=== PATIENT | female | born 1995 | race Caucasian/White ===

== ENCOUNTER 2018-06-30 22:37 | Emergency (ER) | payer BC, MEDICAID ==
[2018-06-30 22:47] VITALS: BP 116/65
--- NOTE | 2018-06-30 23:22 | EDM.PDOC ---
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 She states she landed more or less on her right hip right lateral abdominal wall and right lower ribs. It did not the wind out of her. Her concern is injury to her second trimester . He claims that she is about 15-16 weeks . Previous ultrasound dated her due date to be November 26, 2018. She's had no spotting or bleeding per vagina since time of injury. Lower abdominal pain or cramping. She states she can take a deep breath without pain in her ribs at this time. She states she does feel stiff and sore and bruised. Onset: Today Onset Date: 06/30/18 Onset Time: 21:45 Duration: Minutes: Location: Reports: Chest (Right lower ribs), Back (Right lower back and flank area), Lower Extremity, Right (Right hip and thigh.) Quality: Reports: Ache Severity: Mild Improves with: Reports: Rest Worsens with: Reports: Movement Context: Reports: Trauma (Tripped and fell while walking down stairs landing hard on her right side injuring her right hip right lower ribs and right lateral abdominal wall and flank.). 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 Denies: Fever, Chills, Malaise HEENT: Reports: No Symptoms (During the ) Respiratory: Reports: Other. Denies: Shortness of Breath, Wheezing, Pleuritic Chest Pain Cardiovascular: Reports: No Symptoms (Some pain right lower ribs on examination) Endocrine: Reports: Fatigue GI/Abdominal: Reports: No Symptoms. Denies: Abdominal Pain : Reports: Frequency, Other (Is 15-1/2 weeks by dates.) Musculoskeletal: Reports: Other (Recent fall with contusion to her right hip thigh and flank.) Skin: Reports: No Symptoms Neurological: Reports: No Symptoms Psychiatric: Reports: No Symptoms Hematologic/Lymphatic: Reports: No Symptoms Immunologic: Reports: No Symptoms ED EXAM - Physical Exam Exam: See Below Exam Limited By: No Limitations General Appearance: Alert, WD/WN, Anxious, Moderate Distress Respiratory/Chest: No Respiratory Distress, Lungs Clear, Normal Breath Sounds, Chest Non-Tender, Other (From compression of her ribs gave her very little discomfort with no signs of rib fracture right lower) Cardiovascular: Normal Peripheral Pulses, Regular Rate, Rhythm, No Edema, No Gallop, No Murmur GI/Abdominal Exam: Normal Bowel Sounds, Soft, Non-Tender, No Organomegaly, No Abnormal Bruit, No Mass, Pelvis Stable, Other (Uterine fundus palpable 3 cm above the pubic symphysis.) Heart Tones: Present (On ultrasound at bedside.) Heart Tones per Min: 158 Back Exam: Normal Inspection, Full Range of Motion. No: CVA Tenderness (L), CVA Tenderness (R) Extremities: Normal Inspection, Normal Range of Motion, Non-Tender, No Pedal Edema, Other (Tender over the greater trochanteric process right hip but no signs of) Neurological: Alert, Oriented ( bony injury), CN II-XII Intact, Normal Cognition , Normal Gait Psychiatric: Anxious Skin Exam: Warm, Dry, Intact, Normal Color, No Rash Course - Vital Signs Last Recorded V/S: Last Vital Signs Temp 36.6 C 06/30/18 22:45 Pulse 107 H 06/30/18 22:45 Resp 18 06/30/18 22:45 BP 116/65 06/30/18 22:45 Pulse Ox 97 06/30/18 22:45 - Radiology Interpretation Free Text/Narrative:: 23-year-old female presents to the ED after falling down the flight of stairs. She landed hard on her right hip right lateral abdominal wall right flank area and right lower ribs. She states it did not the wind out of her. She states these areas don't hurt too bad.Major concern is possible injury to fetus. She is clinically 15-1/2 weeks . She denies any spotting or bleeding per vagina. She fell within the last hour. Examination shows no signs of rib or bony fracture. She has some contusion to her greater trochanteric process of her right hip and upper thigh and lateral abdominal wall. Benign abdominal examination. Bedside ultrasound shows a active fetus with a good heart beat with heart tones of 158/m there is no evidence of any placental hemorrhage or subchorionic bleed. Patient reassured. Conservative treatment with Tylenol if needed ice to sore areas. 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 Departure - Departure Time of Disposition: 23:31 Disposition: Home, Self-Care 01 Condition: Fair Clinical Impression: Fall (on) (from) other stairs and steps, initial encounter, Normal in second trimester Contusion of rib on right side Qualifiers: Encounter type: initial encounter Qualified Code(s): S20.211A - Contusion of right front wall of thorax, initial encounter - Discharge Information *PRESCRIPTION DRUG MONITORING PROGRAM REVIEWED*: Not Applicable *COPY OF PRESCRIPTION DRUG MONITORING REPORT IN PATIENT SUMMER: Not Applicable Instructions: Contusion, [id number], Second Trimester of Referrals: Jocelin Mejia PA-C [Primary Care Provider] - Forms: ED Department Discharge Additional Instructions: Evaluation the emergency room today in regards to a fall on the stairs tonight. Suffered blunt trauma to the right lower ribs and right lateral abdominal wall and back. No serious injuries appear to occurred to this other other than contusion which means bruised tissues. Concern arose in regards to being in the second trimester with concerns about possible injury to the fetus and/ or the placenta. Ultrasound done in the ED reveals a normal active healthy fetus approximate 15-16 weeks gestation. There are no injuries to the placenta and all looks well. Expect to have some increased stiffness and soreness in the right side tomorrow and the next day. May use Tylenol if needed for pain relief. No Motrin or Aleve in . Follow-up with personal care physician if any further problems arise.
== END 2018-06-30 23:50 | disposition home or self-care (01) ==
LOC: JD.ED 22:37
DX: O9A.212 Injury, poisoning and certain other consequences of external causes complicating pregnancy, second trimester (principal); S20.211A Contusion of right front wall of thorax, initial encounter; O99.512 Diseases of the respiratory system complicating pregnancy, second trimester; J45.909 Unspecified asthma, uncomplicated; O99.332 Smoking (tobacco) complicating pregnancy, second trimester; F17.210 Nicotine dependence, cigarettes, uncomplicated; W10.9XXA Fall (on) (from) unspecified stairs and steps, initial encounter; Z3A.15 15 weeks gestation of pregnancy
CPT/HCPCS: 99283; 99284

== ENCOUNTER 2018-12-12 07:04 | Inpatient (IN) | payer SELFPAY ==
[2018-12-12] MEDS ORDERED: Sodium Chloride 0.9% 10 ML Syringe FLUSH PRN (07:13)
[2018-12-12] MEDS ORDERED: Nalbuphine 20 MG/ML 1 ML Syringe IVPUSH PRN (07:13)
[2018-12-12] MEDS ORDERED: Ondansetron 4 MG/2 ML SDV IVPUSH PRN (07:13)
[2018-12-12] MEDS ORDERED: Oxytocin/Lactated Ringers 10 UNIT/1,000 ML BAG IV SCH ×2 (07:15)
[2018-12-12] MEDS: Lactated Ringers 1,000 ML IV SCH ×3 (08:29→14:15)
--- NOTE | 2018-12-12 11:39 | PCM.PREANE ---
Preanesthetic Assessment - Procedure Proposed Procedure: fozia - Anesthesia/Transfusion/Family Hx Anesthesia History: Prior Anesthesia Without Reaction Family History of Anesthesia Reaction: No Transfusion History: No Prior Transfusion(s) - Review of Systems General: No Symptoms Pulmonary: Wheezing, Cough (asthma) Cardiovascular: No Symptoms Gastrointestinal: No Symptoms Neurological: No Symptoms Other: Reports: Depression, Anxiety - Physical Assessment O2 Sat by Pulse Oximetry: 97 Respiratory Rate: 18 Vital Signs: Last Vital Signs Temp 97.9 F 12/12/18 07:14 Pulse 118 H 12/12/18 07:14 Resp 18 12/12/18 07:14 BP 103/61 12/12/18 07:14 Pulse Ox 97 12/12/18 07:14 Height: 5 ft 2 in Weight: 100.743 kg ASA Class: 2 Mental Status: Alert & Oriented x3 Airway Class: Mallampati = 1 Dentition: Reports: Normal Dentition Thyro-Mental Finger Breadths: 3 Mouth Opening Finger Breadths: 3 ROM/Head Extension: Full Lungs: Clear to Auscultation, Normal Respiratory Effort Cardiovascular: Regular Rate, Regular Rhythm - Lab Values: Laboratory Last Values WBC 15.79 K/mm3 (3.98-10.04) H 12/12/18 08:25 RBC 3.77 M/mm3 (3.98-5.22) L 12/12/18 08:25 Hgb 9.6 gm/L (11.2-15.7) L 12/12/18 08:25 Hct 31.2 % (34.1-44.9) L 12/12/18 08:25 MCV 82.8 fl (79.4-94.8) 12/12/18 08:25 MCH 25.5 pg (25.6-32.2) L 12/12/18 08:25 MCHC 30.8 g/dl (32.2-35.5) L 12/12/18 08:25 RDW Std Deviation 45.4 fL (36.4-46.3) 12/12/18 08:25 Plt Count 388 K/mm3 (182-369) H 12/12/18 08:25 MPV 10.3 fl (9.4-12.3) 12/12/18 08:25 Urine Color Yellow (Yellow) 12/12/18 09:33 Urine Appearance Clear (Clear) 12/12/18 09:33 Urine pH 7.0 (5.0-8.0) 12/12/18 09:33 Ur Specific [place] 1.020 (1.005-1.030) 12/12/18 09:33 Urine Protein Negative (Negative) 12/12/18 09:33 Urine Glucose (UA) Negative (Negative) 12/12/18 09:33 Urine Ketones Negative (Negative) 12/12/18 09:33 Urine Occult Blood Negative (Negative) 12/12/18 09:33 Urine Nitrite Negative (Negative) 12/12/18 09:33 Urine Bilirubin Negative (Negative) 12/12/18 09:33 Urine Urobilinogen 1.0 (0.2-1.0) 12/12/18 09:33 Ur Leukocyte Esterase Negative (Negative) 12/12/18 09:33 Urine Opiates Screen Negative (KUKHDW=632) 12/12/18 09:33 Ur Buprenorphine Scrn Negative (CUTOFF=10) 12/12/18 09:33 Ur Oxycodone Screen Negative (TFP3XC=892) 12/12/18 09:33 Urine Methadone Screen Negative (MGYXWT=422) 12/12/18 09:33 Ur Propoxyphene Screen Negative (JENICJ=968) 12/12/18 09:33 Ur Barbiturates Screen Negative (ZNLUET=776) 12/12/18 09:33 Ur Tricyclics Screen Negative (WYGHYR=025) 12/12/18 09:33 Ur Phencyclidine Scrn Negative (CUTOFF=25) 12/12/18 09:33 Ur Amphetamine Screen Negative (EHTFQQ=292) 12/12/18 09:33 U Methamphetamines Scrn Negative (LLYNTB=250) 12/12/18 09:33 U Benzodiazepines Scrn Negative (MAOFDV=149) 12/12/18 09:33 U Cocaine Metab Screen Negative (SDUPLV=759) 12/12/18 09:33 U Marijuana (THC) Screen Negative (CUTOFF=50) 12/12/18 09:33 Blood Type B POSITIVE 12/12/18 08:25 Gel Antibody Screen Negative 12/12/18 08:25 - Allergies Allergies/Adverse Reactions: Allergies Allergy/AdvReac Type Severity Reaction Status Date / Time No Known Allergies Allergy Verified 12/12/18 07:54 - Blood Blood Available: No - Acknowledgements Anesthesia Type Planned: Epidural Pt an Appropriate Candidate for the Planned Anesthesia: Yes Alternatives and Risks of Anesthesia Discussed w Pt/Guardian: Yes Pt/Guardian Understands and Agrees with Anesthesia Plan: Yes PreAnesthesia Questionnaire Cardiovascular History: Reports: None Respiratory History: Reports: Asthma Gastrointestinal History: Reports: GERD (preg) 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 [No Known Home Meds] 11/10/16 [History] - CURRENT (IN HOUSE) MEDS Current Meds: Current Medications Lactated Ringer's (Ringers, Lactated) 1,000 mls @ 40 mls/hr IV ASDIRECTED DENNIS Last Admin: 12/12/18 08:29 Dose: 40 mls/hr Oxytocin/Lactated Ringer's (Pitocin In Lr 10 Units/1,000 Ml) 10 unit in 1,000 mls @ 12 mls/hr IV TITRATE DENNIS; Protocol Last Titration: 12/12/18 11:20 Dose: 12 munits/min, 72 mls/hr Oxytocin/Lactated Ringer's (Pitocin In Lr 10 Units/1,000 Ml) 10 unit in 1,000 mls @ 500 mls/hr IV .CONTINUOUS DENNIS Nalbuphine HCl (Nubain) 10 mg IVPUSH Q2H PRN PRN Reason: pain Ondansetron HCl (Zofran) 4 mg IVPUSH Q4H PRN PRN Reason: Nausea/Vomiting Sodium Chloride (Saline Flush) 10 ml FLUSH ASDIRECTED PRN PRN Reason: Keep Vein Open
--- NOTE | 2018-12-12 12:07 | PCM.LDHP ---
L&D History of Present Illness - General Date of Service: 12/12/18 Admit Problem/Dx: Patient Status Order with Admit Dx/Problem 12/12/18 07:14 Patient Status [ADT] Routine Admission Diagnosis/Problem Admission Diagnosis/Problem Normal in third trimester Source of Information: Patient History Limitations: Reports: No Limitations - History of Present Illness Introduction:: Patient is a 23-year-old at 40-0/7 weeks gestation who presents for elective induction of labor. Has had very scant care this . Is doing well. No major concerns or complaints - Related Data Allergies/Adverse Reactions: Allergies Allergy/AdvReac Type Severity Reaction Status Date / Time No Known Allergies Allergy Verified 12/12/18 07:54 Home Medications: Home Meds . 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 LMP (Approximate): Other OB/BYN History: Psychiatric History: Reports: Anxiety, Depression - Past Surgical History HEENT Surgical History: Reports: Tonsillectomy Social & Family History - Tobacco Use Smoking Status *Q: Current Every Day Smoker Years of Tobacco use: 12 Packs/Tins Daily: 0.5 Second Hand Smoke Exposure: Yes - Caffeine Use Caffeine Use: Reports: Coffee, Soda - Alcohol Use Alcohol Use History: No Days Per Week of Alcohol Use: 0 - Recreational Drug Use Recreational Drug Use: No - Living Situation & Occupation Living situation: Reports: Single Occupation: Unemployed H&P Review of Systems - Review of Systems: Review Of Systems: See Below General: Reports: No Symptoms Pulmonary: Reports: No Symptoms Cardiovascular: Reports: No Symptoms Gastrointestinal: Reports: No Symptoms Genitourinary: Reports: No Symptoms Musculoskeletal: Reports: No Symptoms Psychiatric: Reports: No Symptoms Neurological: Reports: No Symptoms L&D Exam - Exam Exam: See Below - Vital Signs Vital Signs: Last Vital Signs Temp 36.6 C 12/12/18 07:14 Pulse 118 H 12/12/18 07:14 Resp 18 12/12/18 11:39 BP 103/61 12/12/18 07:14 Pulse Ox 97 12/12/18 11:39 Weight: 100.743 kg - OB Specific Contraction Intensity: Irritability Movement: Active Heart Tones: Present Heart Tones per Min: 140 Heart Rate (FHR) Variability: Moderate (6-25 bmp) Presentation: Vertex - Briceno Score Briceno Score Cervix Position: Midposition Briceno Score Consistency: Medium Briceno Score Effacement: 51-70% Briceno Score Dilation: 1-2 cm Briceno Score Infant's Station: -2 Briceno Score Total: 6 - Exam General: Alert, Oriented, Cooperative Lungs: Clear to Auscultation, Normal Respiratory Effort Cardiovascular: Regular Rate, Regular Rhythm GI/Abdominal Exam: Soft, Non-Tender Genitourinary: Normal external exam Extremities: Normal Inspection Skin: Warm, Dry, Intact - Patient Data Lab Results Last 24 hrs: Laboratory Results - last 24 hr 12/12/18 12/12/18 12/12/18 Range/Units 08:25 08:25 09:33 WBC 15.79 H (3.98-10.04) K/mm3 RBC 3.77 L (3.98-5.22) M/mm3 Hgb 9.6 L (11.2-15.7) gm/L Hct 31.2 L (34.1-44.9) % MCV 82.8 (79.4-94.8) fl MCH 25.5 L (25.6-32.2) pg MCHC 30.8 L (32.2-35.5) g/dl RDW Std Deviation 45.4 (36.4-46.3) fL Plt Count 388 H (182-369) K/mm3 MPV 10.3 (9.4-12.3) fl Urine Color Yellow (Yellow) Urine Appearance Clear (Clear) Urine pH 7.0 (5.0-8.0) Ur Specific [place] 1.020 (1.005-1.030) Urine Protein Negative (Negative) Urine Glucose (UA) Negative (Negative) Urine Ketones Negative (Negative) Urine Occult Blood Negative (Negative) Urine Nitrite Negative (Negative) Urine Bilirubin Negative (Negative) Urine Urobilinogen 1.0 (0.2-1.0) Ur Leukocyte Esterase Negative (Negative) Urine Opiates Screen (WIVOTB=245) Ur Buprenorphine Scrn (CUTOFF=10) Ur Oxycodone Screen (JCD2PH=143) Urine Methadone Screen (YKPPCY=818) Ur Propoxyphene Screen (BEQNPD=335) Ur Barbiturates Screen (ZZMIVR=869) Ur Tricyclics Screen (LUAQTW=314) Ur Phencyclidine Scrn (CUTOFF=25) Ur Amphetamine Screen (FVOAIQ=985) U Methamphetamines Scrn (FZTNJD=775) U Benzodiazepines Scrn (LYKMVX=783) U Cocaine Metab Screen (CIWDXN=297) U Marijuana (THC) Screen (CUTOFF=50) Blood Type B POSITIVE Gel Antibody Screen Negative 12/12/18 Range/Units 09:33 WBC (3.98-10.04) K/mm3 RBC (3.98-5.22) M/mm3 Hgb (11.2-15.7) gm/L Hct (34.1-44.9) % MCV (79.4-94.8) fl MCH (25.6-32.2) pg MCHC (32.2-35.5) g/dl RDW Std Deviation (36.4-46.3) fL Plt Count (182-369) K/mm3 MPV (9.4-12.3) fl Urine Color (Yellow) Urine Appearance (Clear) Urine pH (5.0-8.0) Ur Specific [place] (1.005-1.030) Urine Protein (Negative) Urine Glucose (UA) (Negative) Urine Ketones (Negative) Urine Occult Blood (Negative) Urine Nitrite (Negative) Urine Bilirubin (Negative) Urine Urobilinogen (0.2-1.0) Ur Leukocyte Esterase (Negative) Urine Opiates Screen Negative (ZLERFP=992) Ur Buprenorphine Scrn Negative (CUTOFF=10) Ur Oxycodone Screen Negative (IRV2KS=728) Urine Methadone Screen Negative (SKQQNM=308) Ur Propoxyphene Screen Negative (ZPSPUH=663) Ur Barbiturates Screen Negative (VVENCS=755) Ur Tricyclics Screen Negative (XBKYJY=490) Ur Phencyclidine Scrn Negative (CUTOFF=25) Ur Amphetamine Screen Negative (UILAWU=697) U Methamphetamines Scrn Negative (WSMNSF=010) U Benzodiazepines Scrn Negative (NKYDEN=368) U Cocaine Metab Screen Negative (IPNWKK=397) U Marijuana (THC) Screen Negative (CUTOFF=50) Blood Type Gel Antibody Screen Result Diagrams: 12/12/18 08:25 - Problem List (1) 40 weeks gestation of SNOMED Code(s): 19033806 ICD Code: Z3A.40 - 40 WEEKS GESTATION OF Status: Acute Current Visit: Yes Problem List Initiated/Reviewed/Updated: Yes Orders Last 24hrs: Active Orders 24 hr Category Date Time Status Patient Status [ADT] Routine ADT 12/12/18 07:14 Active Communication Order [RC] ASDIRECTED Care 12/12/18 07:14 Active Communication Order [RC] ASDIRECTED Care 12/12/18 07:14 Active Communication Order [RC] ASDIRECTED Care 12/12/18 07:14 Active Monitoring [RC] INTERMITTENT Care 12/12/18 07:14 Active Non Stress Test [RC] PER UNIT ROUTINE Care 12/12/18 07:14 Active Notify Provider [RC] ASDIRECTED Care 12/12/18 07:14 Active Notify Provider [RC] PRN Care 12/12/18 07:14 Active Peripheral IV Care [RC] . DIRECTED Care 12/12/18 07:14 Active Vaginal Exam [RC] ASDIRECTED Care 12/12/18 07:14 Active Vital Signs [RC] ASDIRECTED Care 12/12/18 07:14 Active Regular Diet [DIET] Diet 12/12/18 Breakfast Active PATIENT RETYPE [BBK] Routine Lab 12/12/18 08:25 Received RAPID PLASMA REAGIN,RPR [CHEM] Routine Lab 12/12/18 08:25 Received Lactated Ringers [Ringers, Lactated] 1,000 ml Med 12/12/18 07:15 Active IV ASDIRECTED Nalbuphine [Nubain] Med 12/12/18 07:13 Active 10 mg IVPUSH Q2H PRN Ondansetron [Zofran] Med 12/12/18 07:13 Active 4 mg IVPUSH Q4H PRN Oxytocin/Lactated Ringers [Pitocin in LR 10 Units/1,000 Med 12/12/18 07:15 Active ML] 10 unit in 1,000 ml IV .CONTINUOUS Oxytocin/Lactated Ringers [Pitocin in LR 10 Units/1,000 Med 12/12/18 07:15 Active ML] 10 unit in 1,000 ml IV TITRATE Sodium Chloride 0.9% [Saline Flush] Med 12/12/18 07:13 Active 10 ml FLUSH ASDIRECTED PRN Electronic Heart Tones Internal [WOMSER] Per Unit Oth 12/12/18 07:14 Ordered Routine Peripheral IV Insertion Adult [OM.PC] Routine Oth 12/12/18 07:14 Ordered Resuscitation Status Routine Resus Stat 12/12/18 07:13 Ordered Medication Orders Lactated Ringer's (Ringers, Lactated) 1,000 mls @ 40 mls/hr IV ASDIRECTED DENNIS Last Admin: 12/12/18 08:29 Dose: 40 mls/hr Oxytocin/Lactated Ringer's (Pitocin In Lr 10 Units/1,000 Ml) 10 unit in 1,000 mls @ 12 mls/hr IV TITRATE DENNIS; Protocol Last Titration: 12/12/18 11:56 Dose: 14 munits/min, 84 mls/hr Titration: 12/12/18 11:20 Dose: 12 munits/min, 72 mls/hr Titration: 12/12/18 10:43 Dose: 10 munits/min, 60 mls/hr Titration: 12/12/18 10:11 Dose: 8 munits/min, 48 mls/hr Titration: 12/12/18 09:35 Dose: 6 munits/min, 36 mls/hr Titration: 12/12/18 09:00 Dose: 4 munits/min, 24 mls/hr Admin: 12/12/18 08:29 Dose: 2 munits/min, 12 mls/hr Oxytocin/Lactated Ringer's (Pitocin In Lr 10 Units/1,000 Ml) 10 unit in 1,000 mls @ 500 mls/hr IV .CONTINUOUS DENNIS Nalbuphine HCl (Nubain) 10 mg IVPUSH Q2H PRN PRN Reason: pain Ondansetron HCl (Zofran) 4 mg IVPUSH Q4H PRN PRN Reason: Nausea/Vomiting Sodium Chloride (Saline Flush) 10 ml FLUSH ASDIRECTED PRN PRN Reason: Keep Vein Open Assessment/Plan Comment:: 23 y/o at 40 0/7 wks presents for elective IOL * Labs done * GBS negative * Has been on pitocin since this AM. Currently at 14. AROM performed. Continue present management * Pain management per patient preference * Anticipate
[2018-12-12] MEDS ORDERED: ePHEDrine 50 MG/ML SDV IVPUSH PRN (13:47)
[2018-12-12] MEDS ORDERED: fentaNYL 100 MCG/2 ML SDV EPIDUR PRN (13:47)
[2018-12-12] MEDS ORDERED: diphenhydrAMINE 50 MG/ML SDV IVPUSH PRN (13:47)
[2018-12-12] MEDS ORDERED: Bupivacaine/fentaNYL/NS 100 ML Bag EPIDUR SCH (14:00)
--- NOTE | 2018-12-12 17:14 | PCM.DEL ---
L & D Note - General Info Date of Service: 12/12/18 - Delivery Note Labor: Induced by ARM, Induced by Oxytocin Delivery Outcome: Livebirth Infant Delivery Method: Spontaneous Vaginal Delivery-Single Delivery Mode: Spontaneous Presentation: Left Occiput Anterior (CHIDI) Nuchal Cord: Present, Reduced Anesthesia Type: Epidural Amniotic Fluid Description: Clear Episiotomy Type: None Laceration: None Placenta: Intact, Spontaneous Cord: 3 Vessels Estimated Blood Loss: 200 Resuscitation Needed: Yes : Bulb Syringe, Stimulated, Warmed, Center Point Used, Warmer Used Delivery Comments (Free Text/Narrative):: Patient found to be complete and began pushing. With maternal pushing effort head delivered from an CHIDI presentation. Nuchal cord present and reduced. With gentle downward traction the shoulders and body delivered. Infant placed on maternal abdomen. Cord clamped and cut. Cord blood obtained. Placenta allowed time to separate and expelled intact. Inspection of the perineum showed no lacerations - General Info Date of Service: 12/12/18 - Patient Data Vitals - Most Recent: Last Vital Signs Temp 36.6 C 12/12/18 07:14 Pulse 118 H 12/12/18 07:14 Resp 18 12/12/18 11:39 BP 103/61 12/12/18 07:14 Pulse Ox 97 12/12/18 11:39 Weight - Most Recent: 100.743 kg I&O - Last 24 Hours: Intake & Output 12/12/18 12/12/18 12/12/18 06:59 14:59 22:59 Intake Total 2180 1000 Output Total 150 Balance 2180 850 Lab Results Last 24 Hours: Laboratory Results - last 24 hr 12/12/18 12/12/18 12/12/18 Range/Units 08:25 08:25 09:33 WBC 15.79 H (3.98-10.04) K/mm3 RBC 3.77 L (3.98-5.22) M/mm3 Hgb 9.6 L (11.2-15.7) gm/L Hct 31.2 L (34.1-44.9) % MCV 82.8 (79.4-94.8) fl MCH 25.5 L (25.6-32.2) pg MCHC 30.8 L (32.2-35.5) g/dl RDW Std Deviation 45.4 (36.4-46.3) fL Plt Count 388 H (182-369) K/mm3 MPV 10.3 (9.4-12.3) fl Urine Color Yellow (Yellow) Urine Appearance Clear (Clear) Urine pH 7.0 (5.0-8.0) Ur Specific [place] 1.020 (1.005-1.030) Urine Protein Negative (Negative) Urine Glucose (UA) Negative (Negative) Urine Ketones Negative (Negative) Urine Occult Blood Negative (Negative) Urine Nitrite Negative (Negative) Urine Bilirubin Negative (Negative) Urine Urobilinogen 1.0 (0.2-1.0) Ur Leukocyte Esterase Negative (Negative) Urine Opiates Screen (SZHBCE=271) Ur Buprenorphine Scrn (CUTOFF=10) Ur Oxycodone Screen (OMW7AT=878) Urine Methadone Screen (PJQVTO=069) Ur Propoxyphene Screen (YTACUK=478) Ur Barbiturates Screen (DUXUIH=591) Ur Tricyclics Screen (ITCZUK=988) Ur Phencyclidine Scrn (CUTOFF=25) Ur Amphetamine Screen (AAHXGR=887) U Methamphetamines Scrn (XMFDXE=722) U Benzodiazepines Scrn (YUSVZH=706) U Cocaine Metab Screen (UUYKQA=845) U Marijuana (THC) Screen (CUTOFF=50) Blood Type B POSITIVE Gel Antibody Screen Negative 12/12/18 Range/Units 09:33 WBC (3.98-10.04) K/mm3 RBC (3.98-5.22) M/mm3 Hgb (11.2-15.7) gm/L Hct (34.1-44.9) % MCV (79.4-94.8) fl MCH (25.6-32.2) pg MCHC (32.2-35.5) g/dl RDW Std Deviation (36.4-46.3) fL Plt Count (182-369) K/mm3 MPV (9.4-12.3) fl Urine Color (Yellow) Urine Appearance (Clear) Urine pH (5.0-8.0) Ur Specific [place] (1.005-1.030) Urine Protein (Negative) Urine Glucose (UA) (Negative) Urine Ketones (Negative) Urine Occult Blood (Negative) Urine Nitrite (Negative) Urine Bilirubin (Negative) Urine Urobilinogen (0.2-1.0) Ur Leukocyte Esterase (Negative) Urine Opiates Screen Negative (JNKQPS=916) Ur Buprenorphine Scrn Negative (CUTOFF=10) Ur Oxycodone Screen Negative (SON9XH=211) Urine Methadone Screen Negative (EQTBVM=829) Ur Propoxyphene Screen Negative (HZNHHT=168) Ur Barbiturates Screen Negative (APFTHI=405) Ur Tricyclics Screen Negative (VKHJOH=265) Ur Phencyclidine Scrn Negative (CUTOFF=25) Ur Amphetamine Screen Negative (PJVJJK=228) U Methamphetamines Scrn Negative (RLDMEW=291) U Benzodiazepines Scrn Negative (YGQXNW=813) U Cocaine Metab Screen Negative (YXBQFD=578) U Marijuana (THC) Screen Negative (CUTOFF=50) Blood Type Gel Antibody Screen Med Orders - Current: Current Medications Diphenhydramine HCl (Benadryl) 25 mg IVPUSH Q6H PRN PRN Reason: pruritis Ephedrine Sulfate (Ephedrine Sulfate) 5 mg IVPUSH ASDIRECTED PRN PRN Reason: Hypotension Fentanyl (Sublimaze) 100 mcg EPIDUR Q3H PRN PRN Reason: Pain Last Admin: 12/12/18 14:04 Dose: 100 mcg Fentanyl/Bupivacaine HCl (Fentanyl/Bupivacaine/Ns 2 Mcg-0.125% 100 Ml) 100 ml EPIDUR ASDIRECTED DENNIS Last Admin: 12/12/18 14:04 Dose: 100 ml Lactated Ringer's (Ringers, Lactated) 1,000 mls @ 40 mls/hr IV ASDIRECTED DENNIS Last Admin: 12/12/18 14:15 Dose: 40 mls/hr Oxytocin/Lactated Ringer's (Pitocin In Lr 10 Units/1,000 Ml) 10 unit in 1,000 mls @ 12 mls/hr IV TITRATE DENNIS; Protocol Last Titration: 12/12/18 16:30 Dose: 500 mls/hr Oxytocin/Lactated Ringer's (Pitocin In Lr 10 Units/1,000 Ml) 10 unit in 1,000 mls @ 500 mls/hr IV .CONTINUOUS DENNIS Nalbuphine HCl (Nubain) 10 mg IVPUSH Q2H PRN PRN Reason: pain Ondansetron HCl (Zofran) 4 mg IVPUSH Q4H PRN PRN Reason: Nausea/Vomiting Sodium Chloride (Saline Flush) 10 ml FLUSH ASDIRECTED PRN PRN Reason: Keep Vein Open - Problem List & Annotations (1) 40 weeks gestation of SNOMED Code(s): 28250452 Code(s): Z3A.40 - 40 WEEKS GESTATION OF Status: Acute Current Visit: Yes (2) Insufficient care SNOMED Code(s): 7152625122066 Code(s): O09.30 - SUPRVSN OF PREG W INSUFFICIENT ANTENAT CARE, UNSP TRIMESTER Status: Acute Current Visit: Yes Qualifiers: Trimester: third trimester Qualified Code(s): O09.33 - Supervision of with insufficient care, third trimester (3) Vaginal delivery SNOMED Code(s): 968428018 Code(s): O80 - ENCOUNTER FOR FULL-TERM UNCOMPLICATED DELIVERY Status: Acute Current Visit: Yes - Problem List Review Problem List Initiated/Reviewed/Updated: Yes - My Orders Last 24 Hours: My Active Orders 12/12/18 07:13 Nalbuphine [Nubain] 10 mg IVPUSH Q2H PRN Ondansetron [Zofran] 4 mg IVPUSH Q4H PRN Sodium Chloride 0.9% [Saline Flush] 10 ml FLUSH ASDIRECTED PRN Resuscitation Status Routine 12/12/18 07:14 Patient Status [ADT] Routine Communication Order [RC] ASDIRECTED Communication Order [RC] ASDIRECTED Communication Order [RC] ASDIRECTED Monitoring [RC] INTERMITTENT Non Stress Test [RC] PER UNIT ROUTINE Notify Provider [RC] ASDIRECTED Notify Provider [RC] PRN Peripheral IV Care [RC] . DIRECTED Vaginal Exam [RC] ASDIRECTED Vital Signs [RC] ASDIRECTED Electronic Heart Tones Internal [WOMSER] Per Unit Routine Peripheral IV Insertion Adult [OM.PC] Routine 12/12/18 07:15 Lactated Ringers [Ringers, Lactated] 1,000 ml IV ASDIRECTED Oxytocin/Lactated Ringers [Pitocin in LR 10 Units/1,000 ML] 10 unit in 1,000 ml IV .CONTINUOUS Oxytocin/Lactated Ringers [Pitocin in LR 10 Units/1,000 ML] 10 unit in 1,000 ml IV TITRATE 12/12/18 08:25 PATIENT RETYPE [BBK] Routine RAPID PLASMA REAGIN,RPR [CHEM] Routine 12/12/18 Breakfast Regular Diet [DIET] - Assessment Assessment:: 23 y/o G4 now P4004 PPD#0 from at 40 0/7 wks - Plan Plan:: * Routine cares * Encourage breast feeding * Discharge home in 1-2 days
[2018-12-12] MEDS ORDERED: Acetaminophen 325 MG Tab PO PRN (17:23)
[2018-12-12] MEDS ORDERED: Witch Hazel Medicated Pads 100/Jar TOP PRN (17:23)
[2018-12-12] MEDS ORDERED: Benzocaine/Menthol 20%-0.5% Spray 56 GM Canister TOP PRN (17:23)
[2018-12-12] MEDS ORDERED: Lanolin 100% Cream 7 GM Tube TOP PRN (17:23)
[2018-12-12] MEDS: Docusate Sodium 100 MG Cap PO PRN (19:54)
[2018-12-12] MEDS ORDERED: Bupivacaine 0.25% 10 ML SDV ONE (22:00)
[2018-12-12] MEDS ORDERED: Lidocaine 1.5% with EPINEPHrine 1:200,000 5 ML Amp ONE (22:00)
[2018-12-13] MEDS: Ibuprofen 600 MG Tab PO PRN ×3 (02:51→15:32)
--- NOTE | 2018-12-13 07:23 | PCM.PNPP ---
- General Info Date of Service: 12/13/18 Functional Status: Reports: Pain Controlled, Tolerating Diet, Ambulating, Urinating - Review of Systems General: Reports: No Symptoms Pulmonary: Reports: No Symptoms Cardiovascular: Reports: No Symptoms Gastrointestinal: Reports: No Symptoms Genitourinary: Reports: No Symptoms Musculoskeletal: Reports: No Symptoms Neurological: Reports: No Symptoms - Patient Data Vital Signs - Most Recent: Last Vital Signs Temp 36.5 C 12/13/18 02:51 Pulse 73 12/13/18 02:51 Resp 16 12/13/18 02:51 BP 108/63 12/13/18 02:51 Pulse Ox 97 12/13/18 02:51 Weight - Most Recent: 100.743 kg I&O - Last 24 Hours: Intake & Output 12/12/18 12/13/18 12/13/18 22:59 06:59 14:59 Intake Total 2820 Output Total 150 Balance 2670 Lab Results - Last 24 Hours: Laboratory Results - last 24 hr 12/12/18 12/12/18 12/12/18 Range/Units 08:25 08:25 08:25 WBC 15.79 H (3.98-10.04) K/mm3 RBC 3.77 L (3.98-5.22) M/mm3 Hgb 9.6 L (11.2-15.7) gm/L Hct 31.2 L (34.1-44.9) % MCV 82.8 (79.4-94.8) fl MCH 25.5 L (25.6-32.2) pg MCHC 30.8 L (32.2-35.5) g/dl RDW Std Deviation 45.4 (36.4-46.3) fL Plt Count 388 H (182-369) K/mm3 MPV 10.3 (9.4-12.3) fl Urine Color (Yellow) Urine Appearance (Clear) Urine pH (5.0-8.0) Ur Specific [place] (1.005-1.030) Urine Protein (Negative) Urine Glucose (UA) (Negative) Urine Ketones (Negative) Urine Occult Blood (Negative) Urine Nitrite (Negative) Urine Bilirubin (Negative) Urine Urobilinogen (0.2-1.0) Ur Leukocyte Esterase (Negative) Urine Opiates Screen (CTDVBZ=936) Ur Buprenorphine Scrn (CUTOFF=10) Ur Oxycodone Screen (FJL0KV=960) Urine Methadone Screen (OSIUEY=831) Ur Propoxyphene Screen (KLHLZI=840) Ur Barbiturates Screen (HTUFBS=526) Ur Tricyclics Screen (AUOHKF=133) Ur Phencyclidine Scrn (CUTOFF=25) Ur Amphetamine Screen (PWIUCM=861) U Methamphetamines Scrn (ZAGAPF=163) U Benzodiazepines Scrn (JPZSGO=401) U Cocaine Metab Screen (LFGNBD=005) U Marijuana (THC) Screen (CUTOFF=50) RPR Non-reactive (NONREACTIVE) Blood Type B POSITIVE Gel Antibody Screen Negative 12/12/18 12/12/18 Range/Units 09:33 09:33 WBC (3.98-10.04) K/mm3 RBC (3.98-5.22) M/mm3 Hgb (11.2-15.7) gm/L Hct (34.1-44.9) % MCV (79.4-94.8) fl MCH (25.6-32.2) pg MCHC (32.2-35.5) g/dl RDW Std Deviation (36.4-46.3) fL Plt Count (182-369) K/mm3 MPV (9.4-12.3) fl Urine Color Yellow (Yellow) Urine Appearance Clear (Clear) Urine pH 7.0 (5.0-8.0) Ur Specific [place] 1.020 (1.005-1.030) Urine Protein Negative (Negative) Urine Glucose (UA) Negative (Negative) Urine Ketones Negative (Negative) Urine Occult Blood Negative (Negative) Urine Nitrite Negative (Negative) Urine Bilirubin Negative (Negative) Urine Urobilinogen 1.0 (0.2-1.0) Ur Leukocyte Esterase Negative (Negative) Urine Opiates Screen Negative (SWYDXG=661) Ur Buprenorphine Scrn Negative (CUTOFF=10) Ur Oxycodone Screen Negative (KJX0RQ=243) Urine Methadone Screen Negative (TRQHQM=719) Ur Propoxyphene Screen Negative (WIPFJP=264) Ur Barbiturates Screen Negative (GKBYLC=093) Ur Tricyclics Screen Negative (CJAITG=341) Ur Phencyclidine Scrn Negative (CUTOFF=25) Ur Amphetamine Screen Negative (OQKCLP=424) U Methamphetamines Scrn Negative (DLAUZY=569) U Benzodiazepines Scrn Negative (JVWZYZ=032) U Cocaine Metab Screen Negative (SPFEWF=181) U Marijuana (THC) Screen Negative (CUTOFF=50) RPR (NONREACTIVE) Blood Type Gel Antibody Screen Med Orders - Current: Current Medications Acetaminophen (Tylenol) 650 mg PO Q4H PRN PRN Reason: mild pain or fever Benzocaine/Menthol (Dermoplast Pain Relief [place]) 0 gm TOP ASDIRECTED PRN PRN Reason: Perineal Comfort Measure Docusate Sodium (Colace) 100 mg PO BID PRN PRN Reason: Constipation Last Admin: 12/12/18 19:54 Dose: 100 mg Emollient Ointment (Lansinoh Hpa) 0 gm TOP ASDIRECTED PRN PRN Reason: Sore Nipples Ibuprofen (Motrin) 600 mg PO Q6H PRN PRN Reason: Mild pain or fever Last Admin: 12/13/18 02:51 Dose: 600 mg Witch Lyubov (Tucks) 1 pad TOP ASDIRECTED PRN PRN Reason: Hemorrhoid pain Discontinued Medications Diphenhydramine HCl (Benadryl) 25 mg IVPUSH Q6H PRN PRN Reason: pruritis Ephedrine Sulfate (Ephedrine Sulfate) 5 mg IVPUSH ASDIRECTED PRN PRN Reason: Hypotension Fentanyl (Sublimaze) 100 mcg EPIDUR Q3H PRN PRN Reason: Pain Last Admin: 12/12/18 14:04 Dose: 100 mcg Fentanyl/Bupivacaine HCl (Fentanyl/Bupivacaine/Ns 2 Mcg-0.125% 100 Ml) 100 ml EPIDUR ASDIRECTED DENNIS Last Admin: 12/12/18 14:04 Dose: 100 ml Lactated Ringer's (Ringers, Lactated) 1,000 mls @ 40 mls/hr IV ASDIRECTED DENNIS Last Admin: 12/12/18 14:15 Dose: 40 mls/hr Oxytocin/Lactated Ringer's (Pitocin In Lr 10 Units/1,000 Ml) 10 unit in 1,000 mls @ 12 mls/hr IV TITRATE DENNIS; Protocol Last Titration: 12/12/18 16:30 Dose: 500 mls/hr Oxytocin/Lactated Ringer's (Pitocin In Lr 10 Units/1,000 Ml) 10 unit in 1,000 mls @ 500 mls/hr IV .CONTINUOUS DENNIS Last Admin: 12/12/18 17:21 Dose: 500 mls/hr Nalbuphine HCl (Nubain) 10 mg IVPUSH Q2H PRN PRN Reason: pain Ondansetron HCl (Zofran) 4 mg IVPUSH Q4H PRN PRN Reason: Nausea/Vomiting Sodium Chloride (Saline Flush) 10 ml FLUSH ASDIRECTED PRN PRN Reason: Keep Vein Open - Interaction Infant Disposition, : in Room with Family Infant Interaction: Holding Infant Feeding: Bottle Fed Infant Support Person: - Recovery Exam Fundal Tone: Firm Fundal Level: 1 Fingerbreadths Below Umbilicus Fundal Placement: Midline Lochia Amount: Small Lochia Color: Rubra/Red Perineum Description: Intact, Minimal Bruising/Swelling Episiotomy/Laceration: None Bladder Status: Voiding Urinary Elimination: Voided - Exam General: Alert, Oriented, Cooperative GI/Abdominal Exam: Soft, Non-Tender Extremities: Normal Inspection Skin: Warm, Dry, Intact - Problem List & Annotations (1) 40 weeks gestation of SNOMED Code(s): 10667661 Code(s): Z3A.40 - 40 WEEKS GESTATION OF Status: Acute Current Visit: Yes (2) Insufficient care SNOMED Code(s): 6552717807760 Code(s): O09.30 - SUPRVSN OF PREG W INSUFFICIENT ANTENAT CARE, UNSP TRIMESTER Status: Acute Current Visit: Yes Qualifiers: Trimester: third trimester Qualified Code(s): O09.33 - Supervision of with insufficient care, third trimester (3) Vaginal delivery SNOMED Code(s): 253133937 Code(s): O80 - ENCOUNTER FOR FULL-TERM UNCOMPLICATED DELIVERY Status: Acute Current Visit: Yes - Problem List Review Problem List Initiated/Reviewed/Updated: Yes - My Orders Last 24 Hours: My Active Orders 12/12/18 07:13 Resuscitation Status Routine 12/12/18 07:14 Monitoring [RC] INTERMITTENT Vaginal Exam [RC] ASDIRECTED 12/12/18 17:23 Activity as Tolerated [RC] PER UNIT ROUTINE Vital Signs [RC] 03,09,15,21 Acetaminophen [Tylenol] 650 mg PO Q4H PRN Benzocaine/Menthol [Dermoplast Pain Relief [place]] See Dose Instructions TOP ASDIRECTED PRN Docusate Sodium [Colace] 100 mg PO BID PRN Ibuprofen [Motrin] 600 mg PO Q6H PRN Lanolin [Lansinoh HPA] See Dose Instructions TOP ASDIRECTED PRN Witch Lyubov [Tucks] 1 pad TOP ASDIRECTED PRN Assess Lochia [WOMSER] Per Unit Routine Assess Uterine Involution [WOMSER] Per Unit Routine Breast Pump [WOMSER] Per Unit Routine Heat Therapy [OM.PC] PRN Ice Therapy [OM.PC] Per Unit Routine Perineal Care [OM.PC] Per Unit Routine Peripheral IV Discontinue [OM.PC] Routine Sitz Bath [OM.PC] Per Unit Routine 12/12/18 Dinner Regular Diet [DIET] 12/13/18 17:23 Heat Therapy [OM.PC] PRN - Assessment Assessment:: 23 y/o G4 now P4004 PPD#1 from at 40 0/7 wks - Plan Plan:: * Routine cares * Bottle feeding * Discharge home today
--- NOTE | 2018-12-13 07:24 | PCM.DCSUM1 ---
Discharge Summary - Discharge Data Discharge Date: 12/13/18 Discharge Disposition: Home, Self-Care 01 Condition: Good - Discharge Diagnosis/Problem(s) (1) 40 weeks gestation of SNOMED Code(s): 86506521 ICD Code: Z3A.40 - 40 WEEKS GESTATION OF Status: Acute Current Visit: Yes (2) Insufficient care SNOMED Code(s): 0663809083667 ICD Code: O09.30 - SUPRVSN OF PREG W INSUFFICIENT ANTENAT CARE, UNSP TRIMESTER Status: Acute Current Visit: Yes Qualifiers: Trimester: third trimester Qualified Code(s): O09.33 - Supervision of with insufficient care, third trimester (3) Vaginal delivery SNOMED Code(s): 722861688 ICD Code: O80 - ENCOUNTER FOR FULL-TERM UNCOMPLICATED DELIVERY Status: Acute Current Visit: Yes - Patient Summary/Data Complications: None Consults: None Recommended Follow-up Testing/Procedures: Follow up in 3-6 weeks for check Hospital Course: 23 y/o presented at 40 0/7 wks for elective IOL. This was done with pitocin and AROM. She progressed well to complete dilation and underwent an uncomplicated . See delivery note for full details. she did well and was discharged home on PPD#1 - Patient Instructions Diet: Regular Diet as Tolerated Activity: As Tolerated Activity, Other: Pelvic Rest for 6 weeks Driving: May Drive Today Showering/Bathing: May Shower Showering/Bathing, Other: May bathe Notify Provider of: Fever, Increased Pain, Swelling and Redness, Drainage, Nausea and/or Vomiting - Discharge Plan *PRESCRIPTION DRUG MONITORING PROGRAM REVIEWED*: Not Applicable *COPY OF PRESCRIPTION DRUG MONITORING REPORT IN PATIENT SUMMER: Not Applicable Home Medications: Home Meds Docusate Sodium [Colace] 100 mg PO BID PRN cap 12/12/18 [Rx] Ibuprofen [Motrin] 600 mg PO Q6H PRN tablet 12/12/18 [Rx] Patient Handouts: Home Care Instructions for Mom Referrals: Giselle Rivero MD [Primary Care Provider] - (3-6 weeks for check) - Discharge Summary/Plan Comment DC Time >30 min.: No - Patient Data Vitals - Most Recent: Last Vital Signs Temp 36.5 C 12/13/18 02:51 Pulse 73 12/13/18 02:51 Resp 16 02/01/19 02:51 BP 108/63 12/13/18 02:51 Pulse Ox 97 12/13/18 02:51 Weight - Most Recent: 100.743 kg I&O - Last 24 hours: Intake & Output 12/12/18 12/13/18 12/13/18 22:59 06:59 14:59 Intake Total 2820 Output Total 150 Balance 2670 Lab Results - Last 24 hrs: Laboratory Results - last 24 hr 12/12/18 12/12/18 12/12/18 Range/Units 08:25 08:25 08:25 WBC 15.79 H (3.98-10.04) K/mm3 RBC 3.77 L (3.98-5.22) M/mm3 Hgb 9.6 L (11.2-15.7) gm/L Hct 31.2 L (34.1-44.9) % MCV 82.8 (79.4-94.8) fl MCH 25.5 L (25.6-32.2) pg MCHC 30.8 L (32.2-35.5) g/dl RDW Std Deviation 45.4 (36.4-46.3) fL Plt Count 388 H (182-369) K/mm3 MPV 10.3 (9.4-12.3) fl Urine Color (Yellow) Urine Appearance (Clear) Urine pH (5.0-8.0) Ur Specific [place] (1.005-1.030) Urine Protein (Negative) Urine Glucose (UA) (Negative) Urine Ketones (Negative) Urine Occult Blood (Negative) Urine Nitrite (Negative) Urine Bilirubin (Negative) Urine Urobilinogen (0.2-1.0) Ur Leukocyte Esterase (Negative) Urine Opiates Screen (IGWKDI=751) Ur Buprenorphine Scrn (CUTOFF=10) Ur Oxycodone Screen (ILN3MJ=647) Urine Methadone Screen (AHROLX=257) Ur Propoxyphene Screen (FDEMBI=812) Ur Barbiturates Screen (YWWWKN=088) Ur Tricyclics Screen (OYKPEH=060) Ur Phencyclidine Scrn (CUTOFF=25) Ur Amphetamine Screen (QPDVLZ=530) U Methamphetamines Scrn (CFHRTW=363) U Benzodiazepines Scrn (CNINJN=098) U Cocaine Metab Screen (ABTBUM=430) U Marijuana (THC) Screen (CUTOFF=50) RPR Non-reactive (NONREACTIVE) Blood Type B POSITIVE Gel Antibody Screen Negative 12/12/18 12/12/18 Range/Units 09:33 09:33 WBC (3.98-10.04) K/mm3 RBC (3.98-5.22) M/mm3 Hgb (11.2-15.7) gm/L Hct (34.1-44.9) % MCV (79.4-94.8) fl MCH (25.6-32.2) pg MCHC (32.2-35.5) g/dl RDW Std Deviation (36.4-46.3) fL Plt Count (182-369) K/mm3 MPV (9.4-12.3) fl Urine Color Yellow (Yellow) Urine Appearance Clear (Clear) Urine pH 7.0 (5.0-8.0) Ur Specific [place] 1.020 (1.005-1.030) Urine Protein Negative (Negative) Urine Glucose (UA) Negative (Negative) Urine Ketones Negative (Negative) Urine Occult Blood Negative (Negative) Urine Nitrite Negative (Negative) Urine Bilirubin Negative (Negative) Urine Urobilinogen 1.0 (0.2-1.0) Ur Leukocyte Esterase Negative (Negative) Urine Opiates Screen Negative (DHOLZZ=523) Ur Buprenorphine Scrn Negative (CUTOFF=10) Ur Oxycodone Screen Negative (UWB2MU=935) Urine Methadone Screen Negative (PTOKLE=787) Ur Propoxyphene Screen Negative (ASVPKT=638) Ur Barbiturates Screen Negative (CKROOA=677) Ur Tricyclics Screen Negative (VTKBWM=305) Ur Phencyclidine Scrn Negative (CUTOFF=25) Ur Amphetamine Screen Negative (GTYDYB=033) U Methamphetamines Scrn Negative (MLDSKK=749) U Benzodiazepines Scrn Negative (DPUIXZ=669) U Cocaine Metab Screen Negative (PIFICY=261) U Marijuana (THC) Screen Negative (CUTOFF=50) RPR (NONREACTIVE) Blood Type Gel Antibody Screen Med Orders - Current: Current Medications Acetaminophen (Tylenol) 650 mg PO Q4H PRN PRN Reason: mild pain or fever Benzocaine/Menthol (Dermoplast Pain Relief [place]) 0 gm TOP ASDIRECTED PRN PRN Reason: Perineal Comfort Measure Docusate Sodium (Colace) 100 mg PO BID PRN PRN Reason: Constipation Last Admin: 12/12/18 19:54 Dose: 100 mg Emollient Ointment (Lansinoh Hpa) 0 gm TOP ASDIRECTED PRN PRN Reason: Sore Nipples Ibuprofen (Motrin) 600 mg PO Q6H PRN PRN Reason: Mild pain or fever Last Admin: 12/13/18 02:51 Dose: 600 mg Witch Lyubov (Tucks) 1 pad TOP ASDIRECTED PRN PRN Reason: Hemorrhoid pain Discontinued Medications Diphenhydramine HCl (Benadryl) 25 mg IVPUSH Q6H PRN PRN Reason: pruritis Ephedrine Sulfate (Ephedrine Sulfate) 5 mg IVPUSH ASDIRECTED PRN PRN Reason: Hypotension Fentanyl (Sublimaze) 100 mcg EPIDUR Q3H PRN PRN Reason: Pain Last Admin: 12/12/18 14:04 Dose: 100 mcg Fentanyl/Bupivacaine HCl (Fentanyl/Bupivacaine/Ns 2 Mcg-0.125% 100 Ml) 100 ml EPIDUR ASDIRECTED DENNIS Last Admin: 12/12/18 14:04 Dose: 100 ml Lactated Ringer's (Ringers, Lactated) 1,000 mls @ 40 mls/hr IV ASDIRECTED DENNIS Last Admin: 12/12/18 14:15 Dose: 40 mls/hr Oxytocin/Lactated Ringer's (Pitocin In Lr 10 Units/1,000 Ml) 10 unit in 1,000 mls @ 12 mls/hr IV TITRATE DENNIS; Protocol Last Titration: 12/12/18 16:30 Dose: 500 mls/hr Oxytocin/Lactated Ringer's (Pitocin In Lr 10 Units/1,000 Ml) 10 unit in 1,000 mls @ 500 mls/hr IV .CONTINUOUS DENNIS Last Admin: 12/12/18 17:21 Dose: 500 mls/hr Nalbuphine HCl (Nubain) 10 mg IVPUSH Q2H PRN PRN Reason: pain Ondansetron HCl (Zofran) 4 mg IVPUSH Q4H PRN PRN Reason: Nausea/Vomiting Sodium Chloride (Saline Flush) 10 ml FLUSH ASDIRECTED PRN PRN Reason: Keep Vein Open
--- NOTE | 2018-12-13 07:54 | PCM48HPAN ---
Post Anesthesia Note - EVALUATION WITHIN 48HRS OF ANESTHETIC Vital Signs in Normal Range: Yes Patient Participated in Evaluation: Yes Respiratory Function Stable: Yes Airway Patent: Yes Cardiovascular Function Stable: Yes Hydration Status Stable: Yes Pain Control Satisfactory: Yes Nausea and Vomiting Control Satisfactory: Yes Mental Status Recovered: Yes
[2018-12-13] MEDS: Docusate Sodium 100 MG Cap PO PRN (09:28)
[2018-12-13 15:40] VITALS: BP 121/75
== END 2018-12-13 17:10 | disposition home or self-care (01) | DRG 807 ==
LOC: JD.OB 07:45 → OBSVTOIN 16:29 → JD.OB 16:30
PROVIDERS: ADMIT Obstetrics & Gynecology; ATTEND Obstetrics & Gynecology
PROC: 6A550ZT Pheresis of Cord Blood Stem Cells, Single (ICD-10-PCS; principal; 2018-12-12)
PROC: 3E033VJ Introduction of Other Hormone into Peripheral Vein, Percutaneous Approach (ICD-10-PCS; principal; 2018-12-12)
PROC: 10907ZC Drainage of Amniotic Fluid, Therapeutic from Products of Conception, Via Natural or Artificial Opening (ICD-10-PCS; principal; 2018-12-12)
PROC: 10E0XZZ Delivery of Products of Conception, External Approach (ICD-10-PCS; principal; 2018-12-12)
PROC: 3E0R3BZ Introduction of Anesthetic Agent into Spinal Canal, Percutaneous Approach (ICD-10-PCS; 2018-12-12)
PROC: 00HU33Z Insertion of Infusion Device into Spinal Canal, Percutaneous Approach (ICD-10-PCS; 2018-12-12)
DX: O48.0 Post-term pregnancy (principal); Z37.0 Single live birth; O99.344 Other mental disorders complicating childbirth; Z3A.40 40 weeks gestation of pregnancy; F41.9 Anxiety disorder, unspecified; O99.62 Diseases of the digestive system complicating childbirth; F32.9 Major depressive disorder, single episode, unspecified; K21.9 Gastro-esophageal reflux disease without esophagitis; O99.334 Smoking (tobacco) complicating childbirth; F17.210 Nicotine dependence, cigarettes, uncomplicated; O69.81X0 Labor and delivery complicated by cord around neck, without compression, not applicable or unspecified
CPT/HCPCS: 01967; 36415; 51702; 59025; 59409; 80306; 81003; 85027; 86592; 86850; 86900; 86901; A9270-GY; J2590; J3010; J3490; J7120

== ENCOUNTER 2019-11-19 23:44 | Emergency (ER) | payer SELFPAY ==
[2019-11-19 23:56] VITALS: BP 147/89; PULSE 98
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
[2019-11-20] MEDS ORDERED: FLU Vacc QS2019-20(6MOS+)/PF 60 MCG/0.5 ML SYRINGE IM ONE (01:00)
[2019-11-20] MEDS ORDERED: Nitrofurantoin Monohydrate/Macrocrystalline 100 MG Cap PO STA (01:01)
== END 2019-11-20 01:27 | disposition home or self-care (01) ==
LOC: JD.ED 23:44
DX: N39.0 Urinary tract infection, site not specified (principal); J45.909 Unspecified asthma, uncomplicated; E66.9 Obesity, unspecified; F17.210 Nicotine dependence, cigarettes, uncomplicated; Z68.38 Body mass index [BMI] 38.0-38.9, adult
CPT/HCPCS: 51798; 81001; 87086; 87088; 87186; 90471; 90686; 99283; A9270; G0008

== ENCOUNTER 2022-05-11 17:24 | Emergency (ER) | payer SELFPAY ==
[2022-05-11 17:42] VITALS: BP 116/76; PULSE 80
[2022-05-11] MEDS ORDERED: Fluorescein 1 MG Ophth Strip EYELF ONE (17:57)
[2022-05-11] MEDS ORDERED: Proparacaine 0.5% Ophth Soln 15 ML Bottle EYERT ONE (17:57)
== END 2022-05-11 19:28 | disposition home or self-care (01) ==
LOC: JD.ED 17:24
DX: H10.11 Acute atopic conjunctivitis, right eye (principal); K21.9 Gastro-esophageal reflux disease without esophagitis; F17.210 Nicotine dependence, cigarettes, uncomplicated; E66.9 Obesity, unspecified; Z68.30 Body mass index [BMI] 30.0-30.9, adult; Z86.16 Personal history of COVID-19
CPT/HCPCS: 99282; 99283